=== PATIENT | female | born 1995 | race Caucasian/White ===

== ENCOUNTER 2017-03-23 12:44 | Emergency (ER) | payer OTHER ==
[~2017-03-23] VITALS: Ht 162.6 cm; Wt 50.5 kg
[2017-03-23] MEDS ORDERED: morphine SULFATE 10 MG/ML, 1ML IVPush ONE (13:30)
[2017-03-23] MEDS ORDERED: KETOROLAC 30 MG/1 ML IVPush ONE (13:30)
[2017-03-23] MEDS ORDERED: ONDANSETRON 2MG/ML, 2ML IVPush ONE (13:30)
[2017-03-23] MEDS ORDERED: ONDANSETRON 2MG/ML, 2ML ONE (14:11)
[2017-03-23] MEDS ORDERED: KETOROLAC 30 MG/1 ML ONE (14:11)
[2017-03-23] MEDS ORDERED: MORPHINE SULFATE 4 MG/ML, 1ML ONE (14:11)
[2017-03-23 15:05] VITALS: BP 142/83
== END 2017-03-23 15:07 | disposition home or self-care (01) ==
LOC: ED 14:29
DX: S22.31XA Fracture of one rib, right side, initial encounter for closed fracture (principal); S00.83XA Contusion of other part of head, initial encounter; Z87.891 Personal history of nicotine dependence; W19.XXXA Unspecified fall, initial encounter; Y93.89 Activity, other specified; Y92.009 Unspecified place in unspecified non-institutional (private) residence as the place of occurrence of the external cause; Y99.9 Unspecified external cause status
CPT/HCPCS: 70450; 70486; 71101; 96374; 96375; 99284; J1885; J2270; J2405

== ENCOUNTER 2017-11-21 05:57 | Day surgery (SDC) | payer OTHER ==
[~2017-11-21] VITALS: Ht 162.6 cm; Wt 55.3 kg
[2017-11-21] MEDS ORDERED: NEO/BACI/POLY/HC OINT 15GM ONE (06:43)
[2017-11-21] MEDS ORDERED: LIDOCAINE/PF 1%, 30ML ONE (06:43)
[2017-11-21] MEDS ORDERED: OXYMETAZOLINE NASAL SPRAY 0.05%, 15ML ONE (06:43)
[2017-11-21] MEDS ORDERED: EPINEPHRINE 1 MG/ML, 1ML ONE (06:44)
[2017-11-21 06:53] VITALS: BP 113/76
[2017-11-21] MEDS ORDERED: LACTATED RINGERS 1,000 ML IV SCH (06:59)
[2017-11-21 07:00] LABS: HCG UR SG 1.024 (1.003-1.030)
[2017-11-21] MEDS ORDERED: LIDOCAINE-MPF 1%, 2ML INFIL ONE (07:00)
[2017-11-21] MEDS ORDERED: NONE PER PT (07:01)
[2017-11-21] MEDS ORDERED: GABAPENTIN 300 MG CAPSULE PO ONE (07:30)
[2017-11-21] MEDS ORDERED: LABETALOL 5MG/ML, 20ML IV PRN (07:30)
[2017-11-21] MEDS ORDERED: MORPHINE SULFATE 4 MG/ML, 1ML IVPush PRN (07:30)
[2017-11-21] MEDS ORDERED: MIDAZOLAM 1 MG/ML, 2ML IV PRN (07:30)
[2017-11-21] MEDS ORDERED: ACETAMINOPHEN 500 MG TABLET PO ONE (07:30)
[2017-11-21] MEDS ORDERED: MEPERIDINE/PF 25MG/0.5ML IVPush PRN (07:30)
[2017-11-21] MEDS ORDERED: PROMETHAZINE 25 MG/ML, 1ML IV PRN (07:30)
[2017-11-21] MEDS ORDERED: ONDANSETRON ODT 8 MG PO ONE (07:30)
[2017-11-21] MEDS ORDERED: ALBUTEROL/IPRATROPIUM 2.5MG/0.5MG, 3 ML NPPB PRN (07:30)
[2017-11-21] MEDS ORDERED: EPHEDRINE 50 MG/ML, 1ML IM PRN (07:30)
[2017-11-21] MEDS ORDERED: DIAZEPAM 5 MG/ML, 2ML IVPush PRN (07:30)
[2017-11-21] MEDS ORDERED: MIDAZOLAM 1 MG/ML, 2ML ONE (07:35)
[2017-11-21] MEDS ORDERED: SCOPOLAMINE PATCH, 1.5MG PATCH.TD72 TD ONE ×2 (07:35→08:00)
[2017-11-21] MEDS ORDERED: FENTANYL PF 100 MCG/2ML ONE ×2 (07:36→08:57)
[2017-11-21] MEDS ORDERED: SUCCINYLCHOLINE 20 MG/ML, 10ML ONE (08:17)
[2017-11-21] MEDS ORDERED: DEXAMETHASONE 4 MG/ML, 1ML ONE (08:17)
[2017-11-21] MEDS ORDERED: CEFAZOLIN 1,000 MG ONE (08:17)
[2017-11-21] MEDS ORDERED: PROPOFOL 10 MG/ML, 20ML ONE (08:17)
[2017-11-21] MEDS ORDERED: OXYcodone 5 MG/5 ML ORAL.SOL UDC ONE (08:57)
[2017-11-21] MEDS: OXYcodone 5 MG/5 ML ORAL.SOL UDC PO PRN ×2 (08:58→09:57)
[2017-11-21] MEDS: FENTANYL PF 100 MCG/2ML IV PRN ×3 (09:01→09:24)
== END 2017-11-21 11:45 ==
LOC: OUT 05:57
PROVIDERS: ATTEND Otolaryngology
DX: J34.2 Deviated nasal septum (principal); J34.3 Hypertrophy of nasal turbinates
CPT/HCPCS: 30140; 30520; 81025; 88305; 88311; J0171; J0330; J0690; J1100; J2250; J2704; J3010; J3490; J7120; Q0162; 88304